=== PATIENT | female | born 1945 | race Caucasian/White ===

== ENCOUNTER 2019-03-23 18:12 | Emergency (ER) | payer MEDICARE, BC ==
[2019-03-23] MEDS ORDERED: Lidocaine 1% 30 ML SDV INJECT ONE (18:17)
[2019-03-23 18:51] VITALS: BP 136/76; PULSE 63
--- NOTE | 2019-03-23 18:58 | CT ---
[id number] CT/CT Head WO IV EXAM: CT Head WO IV CLINICAL DATA: FALL, STRUCK HEAD. COMPARISON STUDY: None FINDINGS: No intracranial hemorrhage, extra-axial fluid collection, mass, or acute ischemia. Generalized parenchymal atrophy with scattered areas of nonspecific white matter disease, commonly seen as sequela of chronic microvascular ischemia. Soft tissues are unremarkable. Mild mucosal thickening the paranasal sinuses. IMPRESSION: No acute intracranial findings. Willie Jay DO 03/23/19 1112 Thank you for allowing us to participate in the care of your patient.
--- NOTE | 2019-03-23 19:02 | CT ---
[id number] CT/CT Cervical Spine WO IV Exam: CT Cervical Spine WO IV CLINICAL DATA: TRAUMA. COMPARISON: None. FINDINGS: No acute fracture. Grade 1 anterolisthesis of C3 over C4 and C4 over C5. The C1-C2 articulation is unremarkable. The prevertebral soft tissues are within normal limits. Moderate degenerative changes seen throughout the cervical spine including loss of disc space height, facet arthropathy and endplate osteophytosis. These findings are most pronounced at C5-C6 and C6-C7. IMPRESSION: NO ACUTE FRACTURE OR SUBLUXATION. Willie Jay DO 03/23/19 1817 Thank you for allowing us to participate in the care of your patient.
--- NOTE | 2019-03-23 19:02 | EDM.PDOC ---
ED HPI GENERAL MEDICAL PROBLEM - General Chief Complaint: Head Injury Stated Complaint: FALL/LACERATION TO HEAD Time Seen by Provider: 03/23/19 18:12 Source of Information: Reports: Patient History Limitations: Reports: No Limitations - History of Present Illness INITIAL COMMENTS - FREE TEXT/NARRATIVE: Pt. presents to ER via ambulance. She was transferred here from [facility]. She was seen there after a fall at home. Pt. states that she was attempting to walk down stairs with she tripped and fell, striking her head against the wall. She denies any LOC. She recalls the entire event. She is not anticoagulated. Pt. also complains of some cervical spinal pain. No numbness/tingling in extremities. Denies any injury elsewhere. No blurred vision. No problems with speech or ambulation. Pt. states that her tetanus is up to date. Pt. sustained a deep laceration to R forehead area that was not addressed in outside facility. Onset: Today Onset Date: 03/23/19 Location: Reports: Head Quality: Reports: Ache, Dull, Sharp Severity: Moderate Right Upper Forehead Pain Score (Numeric/FACES): 2 - Related Data Allergies Allergy/AdvReac Type Severity Reaction Status Date / Time fenoprofen [From [place]] Allergy Other Verified 03/23/19 18:44 niacin Allergy Itching Verified 03/23/19 18:44 Home Meds: Home Meds Aspirin [Halfprin] 81 mg PO DAILY 12/05/15 [History] Calcium Carbonate [Calcium] 1 tab PO BID 12/05/15 [History] Cholecalciferol (Vitamin D3) [Vitamin D3] 1,000 unit PO DAILY 12/05/15 [History] Folic Acid 0.8 mg PO BID 12/05/15 [History] Gluc 2KCl/Chondr/Migdalia Hy/Hy Ac [Glucosamine & Chondroitin Cap] 1 each PO BID [History] Levothyroxine 25 mcg PO ACBREAKFAST 12/05/15 [History] Methotrexate 8 tab PO Q7D 12/05/15 [History] Pravastatin Sodium 10 mg PO DAILY 11/12/16 [History] Olopatadine [Patanol 0.1% Ophth Soln] 1 drop EYEBOTH DAILY PRN 02/17/18 [History ] Atenolol 25 mg PO DAILY 12/15/18 [History] Past Medical History HEENT History: Reports: Cataract, Other (See Below) Other HEENT History: Dry mouth Cardiovascular History: Reports: Hypertension Genitourinary History: Reports: Other (See Below) Other Genitourinary History: Bladder and urethral prolapse Musculoskeletal History: Reports: RA, Other (See Below) Other Musculoskeletal History: malaise, fatigue Endocrine/Metabolic History: Reports: Hypothyroidism - Past Surgical History GI Surgical History: Reports: Appendectomy, Colonoscopy Musculoskeletal Surgical History: Reports: Knee Replacement Social & Family History - Family History Family Medical History: Noncontributory - Caffeine Use Caffeine Use: Reports: None ED ROS GENERAL - Review of Systems Review Of Systems: See Below Constitutional: Reports: No Symptoms HEENT: Reports: Other (SEE HPI) Respiratory: Reports: No Symptoms Cardiovascular: Reports: No Symptoms Endocrine: Reports: No Symptoms GI/Abdominal: Reports: No Symptoms : Reports: No Symptoms Musculoskeletal: Reports: Neck Pain Skin: Reports: No Symptoms Neurological: Reports: No Symptoms. Denies: Confusion, Dizziness, Headache, Numbness, Paresthesia, Seizure, Syncope, Tingling, Tremors, Trouble Speaking, Difficulty Walking, Weakness, Gait Disturbance Psychiatric: Reports: No Symptoms Hematologic/Lymphatic: Reports: No Symptoms ED EXAM, HEAD INJURY - Physical Exam Exam: See Below Exam Limited By: No Limitations General Appearance: Alert, WD/WN, No Apparent Distress Head: Other (4.5 cm laceration to R forehead/temporal area.) Nexus Criteria: Posterior, Midline Cervical Tenderness, Painful Distraction Injuries. No: Evidence of Intoxication, Altered Level of Consciousness, Focal Neurological Deficit Eyes: Bilateral Eye: EOMI, Normal Fundi, Normal Inspection Ears: Normal External Exam, Hearing Grossly Normal Nose: Normal Inspection, Normal Mucousa, No Blood Throat/Mouth: Normal Inspection, Normal Lips, Normal Teeth, Normal Gums, Normal Oropharynx, Normal Voice, No Airway Compromise Neck: Non-Tender, Full Range of Motion, Normal Alignment, Normal Inspection Respiratory: No Respiratory Distress, Lungs Clear, Normal Breath Sounds, No Accessory Muscle Use, Chest Non-Tender Cardiovascular: Normal Peripheral Pulses, Regular Rate, Rhythm, No Edema, No Gallop, No JVD, No Murmur, No Rub GI/Abdominal Exam: Soft, Non-Tender, No Organomegaly, No Distention, No Mass (Female) Exam: Deferred Rectal (Female) Exam: Deferred Back Exam: Normal Inspection, Full Range of Motion Extremities: Normal Inspection, Normal Range of Motion, Non-Tender, No Pedal Edema, Normal Capillary Refill Neurologic: delivery driver/customer service II-XII nml As Tested, No Motor/Sensory Deficits, Alert, Normal Mood/Affect, Oriented x 3 Skin: Normal Color, Warm/Dry - Cecilia Coma Score Best Eye Response ([place]): (4) Open Spontaneously Best Verbal Response ([place]): (5) Oriented Best Motor Response ([place]): (6) Obeys Commands [place] Total: 15 Course - Vital Signs Last Recorded V/S: Last Vital Signs Temp 36.1 C 03/23/19 18:12 Pulse 63 03/23/19 18:12 Resp 16 03/23/19 18:12 BP 136/76 03/23/19 18:12 Pulse Ox 96 03/23/19 18:12 - Orders/Labs/Meds Meds: Medications Discontinued Medications Generic Name Dose Route Start Last Admin Trade Name Freq PRN Reason Stop Dose Admin Lidocaine HCl 30 ml 03/23/19 18:17 03/23/19 18:41 Xylocaine-Mpf 1% INJECT 03/23/19 18:18 30 ml ONETIME ONE Administration - Radiology Interpretation Free Text/Narrative:: CT brain and cervical spine are negative for acute pathology Departure - Departure Time of Disposition: 19:18 Disposition: Home, Self-Care 01 Clinical Impression: Scalp laceration, Concussion injury of brain, Sprain of ligaments of cervical spine - Discharge Information Instructions: Head Injury, Adult, Laceration Care, Adult, Cervical Sprain, Easy -to-Read Referrals: Katja Phelan MD [Primary Care Provider] - Forms: ED Department Discharge Additional Instructions: Home to rest. You can shower tonight, but keep the laceration dry for the next 24 hours after that. Suture removal in 10 days, sooner if redness, swelling, or discharge from the area. Also return if you have worsening headache, confusion, troubles speaking or walking, etc. Tylenol as needed for pain. - Assessment/Plan Plan: Home to rest. You can shower tonight, but keep the laceration dry for the next 24 hours after that. Suture removal in 10 days, sooner if redness, swelling, or discharge from the area. Also return if you have worsening headache, confusion, troubles speaking or walking, etc. Tylenol as needed for pain.
== END 2019-03-23 19:16 | disposition home or self-care (01) ==
LOC: VM.ED 18:12
DX: S06.0X0A Concussion without loss of consciousness, initial encounter (principal); S13.4XXA Sprain of ligaments of cervical spine, initial encounter; S01.81XA Laceration without foreign body of other part of head, initial encounter; S01.01XA Laceration without foreign body of scalp, initial encounter; I10 Essential (primary) hypertension; E03.9 Hypothyroidism, unspecified; Z88.6 Allergy status to analgesic agent; Z79.82 Long term (current) use of aspirin; Z79.899 Other long term (current) drug therapy; Y92.009 Unspecified place in unspecified non-institutional (private) residence as the place of occurrence of the external cause; W10.9XXA Fall (on) (from) unspecified stairs and steps, initial encounter
CPT/HCPCS: 12002; 12013; 70450; 72125; 99283; 99284; J2001